=== PATIENT | female | born 1950 | race Caucasian/White ===

== ENCOUNTER 2022-01-13 09:17 | Emergency (ER) | payer MEDICARE, OTHER ==
--- NOTE | 2022-01-13 09:43 | ED Physician Documentation ---
PD HPI CHEST PAIN - Stated complaint Stated Complaint: CHEST/BACK PX - Chief complaint Chief Complaint: Cardiac - History obtained from History obtained from: Patient - History of Present Illness Timing - onset: Last night Timing - onset during: Rest Timing - duration: Hours (10-12) Timing - details: Gradual onset, Still present, Waxing and waning Quality: Tightness, Aching. No: Sharp, Tearing, Stabbing Location: Upper back (with feeling of it raditing around back to sides of ribs.) Improved by: Rest Worsened by: Movement. No: Inspiration, Eating, Palpation Associated symptoms: No: Shortness of air, Nausea, Feeling faint / dizzy, Palpitations, Cough Review of Systems Constitutional: denies: Fever, Chills Nose: denies: Rhinorrhea / runny nose, Congestion Throat: denies: Sore throat Cardiac: denies: Palpitations, Pedal edema, Calf pain Respiratory: denies: Dyspnea, Cough, Wheezing GI: denies: Nausea, Vomiting, Diarrhea Skin: denies: Rash, Lesions PD PAST MEDICAL HISTORY - Past Medical History Cardiovascular: None Respiratory: None Endocrine/Autoimmune: None - Present Medications Home Medications: Ambulatory Orders Medication Instructions Recorded Confirmed Non Formulary 1 tab PO DAILY 01/13/22 01/13/22 Potassium Citrate [Potassium 15 meq PO DAILY 01/13/22 01/13/22 Citrate ER] tiZANidine [Zanaflex] 4 mg PO Q8H PRN #20 tablet 01/13/22 - Allergies Allergies/Adverse Reactions: Allergies Allergy/AdvReac Type Severity Reaction Status Date / Time morphine Allergy Nausea Verified 01/13/22 09:26 Penicillins Allergy Hives Verified 01/13/22 09:26 - Living Situation Living Situation: reports: With spouse/s.o. Living Arrangement: reports: At home (they are visiting from [place], was [place] a week ago. Plan to drive to [place] tomorrow, stay several days, and then home next tuesday.) - Social History Does the pt smoke?: No - Family History Family history: denies: Venous thromboembolism PD ED PE NORMAL - Vitals Vital signs reviewed: Yes - General General: Alert and oriented X 3, No acute distress, Well developed/nourished - Neck Neck: Supple, no meningeal sign, No adenopathy - Cardiac Cardiac: RRR, No murmur - Respiratory Respiratory: Clear bilaterally - Abdomen Abdomen: Soft, Non tender - Back Back: No CVA TTP, No spinal TTP, Other (some tender in parathoracic muscles intrascapular area. No tenderness to light touch. ) - Derm Derm: Normal color, Warm and dry, No rash - Extremities Extremities: Normal ROM s pain, No edema, No calf tenderness / cord - Neuro Neuro: Alert and oriented X 3, No motor deficit, Normal speech Results - Vitals Vitals: Vital Signs - 24 hr 01/13/22 01/13/22 09:23 11:25 Temperature 36.6 C Heart Rate 83 80 Respiratory 16 19 Rate Blood Pressure 165/90 H 121/74 O2 Saturation 100 99 Oxygen O2 Source Room air - EKG (time done) 09:32 Rate: Rate (enter#) (86) Rhythm: NSR [place]: Normal Intervals: Normal [place] QRS: Normal Ischemia: Normal ST segments, Other (wandering baseline V5/6, but otherwise normal. ). No: ST elevation c/w ischemia, ST depression - Labs Labs: Laboratory Tests 01/13/22 01/13/22 01/13/22 09:45 09:45 09:45 WBC 6.6 RBC 4.82 Hgb 13.5 Hct 42.0 MCV 87.1 MCH 28.0 MCHC 32.1 RDW 13.4 Plt Count 211 MPV 10.2 Neut # (Auto) 4.3 Lymph # (Auto) 1.7 [place] # (Auto) 0.4 Eos # (Auto) 0.1 Baso # (Auto) 0.1 Absolute Nucleated RBC 0.00 Nucleated RBC % 0.0 Sodium 141 Potassium 3.7 Chloride 107 Carbon Dioxide 23 Anion Gap 11.0 BUN 18 Creatinine 0.7 Estimated GFR (MDRD) 83 L Glucose 101 H Calcium 9.8 Total Bilirubin 0.4 AST 19 ALT 20 Alkaline Phosphatase 64 Troponin I High Sens < 2.3 L C-Reactive Protein < 1.0 B-Natriuretic Peptide Total Protein 7.5 Albumin 4.4 Globulin 3.1 Albumin/Globulin Ratio 1.4 Lipase 29 01/13/22 09:45 WBC RBC Hgb Hct MCV MCH MCHC RDW Plt Count MPV Neut # (Auto) Lymph # (Auto) [place] # (Auto) Eos # (Auto) Baso # (Auto) Absolute Nucleated RBC Nucleated RBC % Sodium Potassium Chloride Carbon Dioxide Anion Gap BUN Creatinine Estimated GFR (MDRD) Glucose Calcium Total Bilirubin AST ALT Alkaline Phosphatase Troponin I High Sens C-Reactive Protein B-Natriuretic Peptide 35 Total Protein Albumin Globulin Albumin/Globulin Ratio Lipase - Rads (name of study) chest xray Radiology: Prelim report reviewed (normal), See rad report PD MEDICAL DECISION MAKING - ED course Complexity details: reviewed results, re-evaluated patient, considered differential (will test for signifcant problems. PERC low risk for PE. ), d/w patient Departure - Departure Disposition: Home, Self Care Clinical Impression: Acute thoracic back pain Qualifiers: Back pain laterality: bilateral Qualified Code(s): M54.6 - Pain in thoracic spine Condition: Stable Record reviewed to determine appropriate education?: Yes Instructions: ED Chest Pain Atypical Unkn Cause Prescriptions: tiZANidine [Zanaflex] 4 mg PO Q8H PRN #20 tablet PRN Reason: Spasms Comments: Your EKG, chest x-ray, blood tests are normal without any signs of more serious or significant cause for your discomfort/pressure. At this point I would presume muscular skeletal type pain. You can use Aleve 2 tablets 2-3 times daily for the next several days to week. Add tizanidine muscle relaxant if needed for spasms or stiffness. Recheck with your primary care if not resolved by the time you are back home next week. Return or recheck if worsening symptoms or new associated symptoms such as trouble breathing, fevers, increased pain, rash, other concerns. Discharge Date/Time: 01/13/22 11:58
[2022-01-13 09:50] LABS: BASOPHILS # (AUTO) 0.1 10^3/uL (0.0-0.1); BASOPHILS % (AUTO) 1.1 %; EOSINOPHILS # (AUTO) 0.1 10^3/uL (0.0-0.7); EOSINOPHILS % (AUTO) 1.8 %; HGB - HEMOGLOBIN 13.5 g/dL (12.0-16.0); LYMPHOCYTES # (AUTO) 1.7 10^3/uL (1.5-3.5); LYMPHOCYTES % (AUTO) 24.9 %; MEAN CORPUSCULAR HGB CONC 32.1 g/dL (32.0-36.0); MEAN CORPUSCULAR VOLUME 87.1 fL (81.0-99.0); MEAN PLATELET VOLUME 10.2 fL (7.9-10.8); MONOCYTES # (AUTO) 0.4 10^3/uL (0.0-1.0); NEUTROPHILS # (AUTO) 4.3 10^3/uL (1.5-6.6); NEUTROPHILS % (AUTO) 65.3 %; PLT - PLATELET COUNT 211 10^3/uL (130-450); RED BLOOD COUNT 4.82 10^6/uL (4.20-5.40); RED CELL DISTRIBUTION WIDTH 13.4 % (12.0-15.0); WHITE BLOOD COUNT 6.6 x10^3/uL (4.8-10.8)
--- NOTE | 2022-01-13 10:01 | XRAY Report ---
PROCEDURE: Chest 1 View X-Ray INDICATIONS: Chest pain TECHNIQUE: One view of the chest was acquired. COMPARISON: None. FINDINGS: Surgical changes and devices: None. Lungs and pleura: No pleural effusions or pneumothorax. Lungs are clear. Mediastinum: Mediastinal contours appear normal. Heart size is normal. Bones and chest wall: No suspicious bony lesions. Overlying soft tissues appear unremarkable. IMPRESSION: No acute cardiopulmonary abnormality. Reviewed by: Ben Enrique MD on 01/13/2022 9:59 AM [facility] Approved by: Ben Enrique MD on 01/13/2022 9:59 AM [facility] Station ID: [id number]
[2022-01-13] MEDS ORDERED: NITROGLYCERIN SL 0.4 MG TABLET SL STA (10:09)
[2022-01-13 10:11] LABS: ALBUMIN 4.4 g/dL (3.2-5.5); ALBUMIN/GLOBULIN RATIO 1.4 (1.0-2.2); ALKALINE PHOSPHATASE 64 IU/L (42-121); ALT ALANINE AMINOTRANSFERASE 20 IU/L (10-60); AST ASPARTATE AMINOTRANSFERASE 19 IU/L (10-42); BILIRUBIN,TOTAL 0.4 mg/dL (0.2-1.0); BUN - BLOOD UREA NITROGEN 18 mg/dL (6-20); CALCIUM 9.8 mg/dL (8.5-10.3); CARBON DIOXIDE - CO2 23 mmol/L (21-32); CHLORIDE 107 mmol/L (101-111); CREATININE 0.7 mg/dL (0.4-1.0); GFR - MDRD 83 (>89); GLUCOSE 101 mg/dL (70-100); LIPASE 29 U/L (22-51); POTASSIUM 3.7 mmol/L (3.5-5.0); SODIUM 141 mmol/L (135-145); TOTAL PROTEIN 7.5 g/dL (6.7-8.2)
[2022-01-13 10:13] LABS: CRP - C-REACTIVE PROTEIN < 1.0 mg/dL (0-1.0)
[2022-01-13] MEDS ORDERED: methocarbamoL 500 MG TABLET PO STA (11:38)
[2022-01-13] MEDS ORDERED: NAPROXEN 250 MG TABLET PO STA (11:38)
[2022-01-13 11:41] VITALS: BP 121/74
== END 2022-01-13 11:58 | disposition home or self-care (01) ==
LOC: ED 09:17
DX: M54.6 Pain in thoracic spine (principal); R07.89 Other chest pain
CPT/HCPCS: 36415; 71045; 80053; 83690; 83880; 84484; 85025; 86140; 93005; 99284; A9270